=== PATIENT | female | born 1960 | race African-American/Black ===

== ENCOUNTER 2019-12-21 18:29 | Emergency (ER) | payer SELFPAY ==
[~2019-12-21] VITALS: Ht 165.1 cm; Wt 72.7 kg
[2019-12-21] MEDS ORDERED: IBUPROFEN 600 MG TABLET PO ONE (20:00)
[2019-12-21 20:13] VITALS: BP 157/86
== END 2019-12-21 20:26 | disposition home or self-care (01) ==
LOC: EMS 18:33
DX: L03.011 Cellulitis of right finger (principal); I10 Essential (primary) hypertension; Z88.0 Allergy status to penicillin
CPT/HCPCS: 10060